=== PATIENT | male | born 2000 | race Caucasian/White ===

== ENCOUNTER 2018-04-15 20:38 | Emergency (ER) | payer OTHER ==
[2018-04-15 20:44] VITALS: BP 138/72
--- NOTE | 2018-04-15 23:20 | ER Document Report ---
HPI - HPI Pain Level: 3 Notes: Patient is a 17-year-old male no significant past medical history who presents to the ED complaining of right earache and decreased hearing in the right ear 1 day. He has not had any recent illness. He is eating and drinking without a bowel movements. Pain does not radiate. He has no associated dizziness or tinnitus. Denies any smoking or IV drug use. Denies any headache, fever, head injury, neck pain, URI, sore throat, chest pain, palpitations, syncope, cough, shortness of breath, wheeze, dyspnea, abdominal pain, nausea/vomiting/diarrhea, urinary retention, dysuria, hematuria, or rash. - ROS Systems Reviewed and Negative: Yes All other systems reviewed and negative - CONSTITUTIONAL Constitutional: DENIES: Fever, Chills - EENT EENT: REPORTS: Ear Pain - R Past Medical History - Social History Smoking Status: Never Smoker Family History: Reviewed & Not Pertinent Patient has suicidal ideation: No Patient has homicidal ideation: No Renal/ Medical History: Denies: Hx Peritoneal Dialysis Vertical Provider Document - CONSTITUTIONAL Agree With Documented VS: Yes Notes: PHYSICAL EXAMINATION: GENERAL: Well-appearing, well-nourished and in no acute distress. A&Ox4. Answers questions appropriately. Moves comfortably w/o notable distress HEAD: Atraumatic, normocephalic. EYES: Pupils equal round and reactive to light, extraocular movements intact, sclera anicteric, conjunctiva are normal. ENT: Rt EAC cerumen impaction. Lt EAC wnl. unable to visualize rt TM. Lt TM intact b/l without erythema, fluid, or perforation. Nares patent and without discharge. oropharynx no erythema without exudates. No tonsilar hypertrophy without erythema or exudate. No palatine shift. Uvula midline. No tongue protrusion. No drooling, hoarseness, or airway compromise. Moist mucous membranes. No sinus tenderness. NECK: Normal range of motion, supple without lymphadenopathy. No rigidity/ meningismus. LUNGS: Breath sounds clear to auscultation bilaterally and equal. No wheezes rales or rhonchi. No retractions HEART: Regular rate and rhythm without murmurs, rubs, gallops. NEUROLOGICAL: Normal speech, normal gait. Normal sensory, motor exams PSYCH: Normal mood, normal affect. SKIN: Warm, Dry, normal turgor, no rashes or lesions noted. - INFECTION CONTROL TRAVEL OUTSIDE OF THE [place] IN LAST 30 DAYS: No Course - Re-evaluation Re-evalutation: 04/15/18 01:16 Patient is an afebrile, well-hydrated, 17-year-old male who presents to the ED with cerumen impaction of the right ear. Vitals are acceptable. PE is otherwise unremarkable. Patient is tolerating p.o. without difficulties. He has no significant tachycardia, tachypnea, or hypoxia. No labs or imaging warranted at this time based on H&P. Ear irrigation was performed without success today. Advised patient that he will need to use ear softening Debrox and follow-up with ENT/PCM. Low suspicion for any sepsis, meningitis, severe dehydration, respiratory compromise, mastoiditis, or other systemic emergent condition at this time. Pt is aware that condition can change from initial presentation and he needs to monitor symptoms closely and seek medical attention with any acute changes. Conservative measures otherwise for symptoms. Recheck with your PCM/ENT in 3-5 days. Return to the ED with any worsening/concerning symptoms otherwise as reviewed discharge. Patient is in agreement. - Vital Signs Vital signs: Temp Pulse Resp BP Pulse Ox 98.2 F 72 18 138/72 H 98 04/15/18 20:43 04/15/18 20:43 04/15/18 20:43 04/15/18 20:43 04/15/18 20:43 Discharge - Discharge Clinical Impression: Right ear impacted cerumen Condition: Stable Disposition: HOME, SELF-CARE Instructions: Cerumen Impaction ([facility]) Additional Instructions: Keep the ears clean Avoid Q-tips inside of the ears Tylenol/Motrin if needed Recheck with PCM/ENT in 3-5 days Return to the ED with any worsening symptoms and/or development of fever, headache, chest pain, palpitations, syncope, shortness of breath, trouble breathing, abdominal pain, n/v/d, blood in stool/urine, or other worsening symptoms that are concerning to you. Prescriptions: Carbamide Peroxide [Debrox] 5 - 10 drop OT BID #15 ml Forms: Elevated Blood Pressure Referrals: BYRON ARREGUIN DO [ASSOCIATE] - Follow up in 3-5 days
== END 2018-04-16 00:09 | disposition home or self-care (01) ==
LOC: ER 20:38
DX: H61.21 Impacted cerumen, right ear (principal)
CPT/HCPCS: 99282